=== PATIENT | female | born 1965 | race African-American/Black ===

== ENCOUNTER 2017-07-21 10:11 | Outpatient (CLI) | payer MEDICARE ==
--- NOTE | 2017-07-21 16:35 | CT ---
LUMBAR SPINE CT NONCONTRAST: CLINICAL HISTORY: Low back pain. History of prior back surgery. FINDINGS: Postoperative metallic fusion spans the L5 and S1 segments with an intervening intradiskal space pros thesis. The numbering system delineates a lumbarized S1 segment, with a rudimentary S1-S2 disk space . This does place the iliolumbar ligaments at the L5 level. There is no significant perihardware jacob cency visualized. Vertebral body heights are maintained. There is degenerative endplate change with osteophytosis at T 12-L1, with associated disk space narrowing. There is multilevel degenerative hypertrophy of the fac et joints bilaterally. L5-S1: There is mild ventral effacement of the contents of the vertebral canal, within the limitatio ns of the noncontrast technique, as well as due to obscuration by adjacent streak artifact from indwe lling hardware. There is no high-grade osseous compromise of the bilateral L5-S1 neural foramina. L4-L5: Moderate central canal stenosis is present with a broad-based disk osteophyte and bilateral m oderate degenerative facet hypertrophy. Mild bilateral neural foraminal narrowing present. L3-L4: Moderate central canal stenosis due to broad-based disk osteophyte. No high grade foraminal stenosis. L2-L3: No significant compromise of the central canal or neural foramina. L1-L2: No significant central canal or neural foraminal stenosis. Mild central canal narrowing at t he T12-L1 level due to disk osteophyte complex. Incidental note of partially imaged cholecystectomy clips, as well as surgical clips at the right low er quadrant. There is vascular calcification. IMPRESSION: Postoperative lumbosacral spine. There is multilevel degenerative change of the lumbar spine, as out lined above. POS: [facility]NA
== END 2017-07-21 10:12 | disposition home or self-care (01) ==
LOC: SCSCT 10:11
PROVIDERS: ATTEND Orthopaedic Surgery
DX: M47.896 Other spondylosis, lumbar region (principal); Z98.890 Other specified postprocedural states
CPT/HCPCS: 72131